=== PATIENT | female | born 1970 | race Caucasian/White ===

== ENCOUNTER 2024-05-31 08:11 | Emergency (ER) | payer MEDICAID ==
[~2024-05-31] VITALS: Ht 165.1 cm; Wt 118.0 kg
[~2024-05-31 08:11] MED LIST: IBUP-1051 PO
[2024-05-31 08:12] VITALS: BP 139/79; PULSE 106; RESP 16; TEMP 97.4; O2SAT 98
== END 2024-05-31 10:56 | disposition left against medical advice (07) ==
LOC: ER 08:11
DX: L02.31 Cutaneous abscess of buttock (principal); Z88.8 Allergy status to other drugs, medicaments and biological substances; Z53.21 Procedure and treatment not carried out due to patient leaving prior to being seen by health care provider